=== PATIENT | male | born 1965 | race Caucasian/White ===

== ENCOUNTER 2017-08-29 22:48 | Inpatient (IN) ==
[2017-08-30] MEDS ORDERED: Ondansetron 4 MG/2 ML VIAL IVP PRN (00:56)
[2017-08-30] MEDS ORDERED: Naloxone 0.4 MG/ML INJ IVP PRN (00:56)
[2017-08-30] MEDS ORDERED: Acetaminophen 325 MG TABLET PO PRN (00:56)
[2017-08-30] MEDS ORDERED: *HR* Promethazine 25 MG/ML VIAL IVP PRN ×2 (00:56→21:42)
--- NOTE | 2017-08-30 01:39 | Internal Med History&Physical ---
Date of Encounter: 08/30/17 Time of Encounter: 01:00 Internal Medicine - H&P: HPI Chief complaint: Severe low back pain Admitted From: Emergency Dept Plans for Post Hospital Care: Home History of present illness: Mr. Hodges is a 52 year old male with known PMH of Chronic low back pain since 1999, had few steroid injections in the past went to [facility] 10 days ago with severe lower back pain and some trouble with ambulating too. He was given flexaril and PO steroids which helped with his pain, however since y/d he had very difficult to ambulate. He denied any urine or fecal incontinence. He denied any trauma. Denied any fall. He was transferred to our hospital for further care and possible surgery. Pt is alert, awake and O x 3. Denied any fever / chills. His back pain is tolerable with pain medication. Past Med Surg Social Fam HX - Past Medical History Medical history: hypertension Psychiatric history: anxiety, depression, PTSD - Past Surgical History Surgical History: other - Social History Smoking Status: Never smoker Smokeless Tobacco Status: No (quit 1.5 years ago) Alcohol use: occasionally Drug use: none Internal Medicine - H&P: Meds No Known Home Drugs 08/29/17 [History] 3 Allergy/AdvReac Type Severity Reaction Status Date / Time No Known Allergies Allergy Verified 08/20/17 20:12 All Systems PM: A 10-system review of systems was performed and is negative for pertinent findings except as documented above in the HPI. Review of systems: All the systems are reviewed everything is benign except the systems and symptoms I mentioned in the history of present illness - Constitutional Vitals: Temp Pulse Resp BP Pulse Ox 98.1 F 99 14 124/80 94 08/30/17 00:57 08/30/17 00:57 08/30/17 00:57 08/30/17 00:57 08/30/17 00:57 General appearance: Present: A&O X 3, answers questions appropriately - Head Head exam: Present: atraumatic, normal inspection - Neck Neck exam general surgery: Present: supple - Respiratory Respiratory exam: Present: decreased breath sounds. Absent: rales, respiratory distress, rhonchi, wheezes - Cardiovascular Cardiovascular exam: Present: RRR, +S1, +S2. Absent: tachycardia - GI/Abdominal GI/Abdominal exam: Present: normal bowel sounds, soft. Absent: rebound, rigid, tenderness - Extremities Exam Extremities exam: Absent: calf tenderness, pedal edema, tenderness - Back Exam Back exam: Present: vertebral tenderness (at lumbar region). Absent: CVA tenderness (L), CVA tenderness (R), paraspinal tenderness, rash noted - Neurological Exam Neurological exam: Present: alert, oriented X3, reflexes normal, no focal deficits, strengths equal and symetr throughout. Absent: pronater drift, facial droop, speech deficit - Psychiatric Psychiatric exam: Present: normal affect, normal mood - Skin Skin exam: Absent: rash - Assessment and plan (1) Intractable low back pain Current Visit: Yes Status: Acute Assessment and plan: Admit the pt into Med Surg Reviewed his CT of Spine report - showed moderate multi level degenerative changes through out lumbar spine He does have severe lower back pain Will start him on PO and IV analgesics PRN Cont symptomatic and supportive care Cont Flexaril PRN Will consult Ortho surgery Dr. Hummel in AM Keep NPO for now - If pt need to go to surgery today (2) Degenerative joint disease Current Visit: No Status: Acute Qualifiers: Qualified Code(s): M19.90 - Unspecified osteoarthritis, unspecified site (3) Lumbar radiculopathy Current Visit: No Status: Acute - Time Spent With Patient Total time spent is greater than 50% in coordination of care (as documented) at patient's floor/unit and/or counseling patient:
[2017-08-30] MEDS: *HR* HYDROcodone/Acet 5/325 mg TABLET PO PRN ×3 (01:55→18:03)
[2017-08-30] MEDS: *HR* Heparin 5,000 UNIT/ML VIAL SQ SCH ×2 (04:02→18:04)
[2017-08-30 05:34] LABS: Basophils % 0.5 %; Eosinophils # 0.1 K/mcL (0.0-0.6); Eosinophils % 1.5 %; Hemoglobin 16.6 g/dL (12.9-16.9); Immature Granulocytes % 0.8 % (0-4); Lymphocytes # 3.3 K/mcL (0.6-4.6); Lymphocytes % 38.1 %; Mean Corpuscular HGB Conc 35.3 g/dL (31.6-35.5); Mean Corpuscular Hemoglobin 31.4 pg (28.0-33.3); Mean Corpuscular Volume 88.8 fL (83.0-100.0); Mean Platelet Volume 11.4 fL (9.4-12.4); Monocytes # 0.6 K/mcL (0.0-1.3); Monocytes % 7.5 %; Neutrophils # 4.4 K/mcL (1.6-8.9); Platelet Count 146 K/mcL (140-400); Red Blood Count 5.29 M/mcL (4.19-5.50); Segmented Neutrophils % 51.6 %
[2017-08-30 05:52] LABS: BUN/Creatinine Ratio 25 (6-26); Blood Urea Nitrogen 25 mg/dL (6-20); Carbon Dioxide 22 mEq/L (23-29); Chloride 102 mEq/L (98-107); Glucose 337 mg/dL (70-105); Osmolality,Calculated 292 (280-300); Potassium 4.1 mEq/L (3.5-5.1); Sodium 132 mEq/L (136-145); eGFR For African Americans > 60 (> 60); eGFR For Non-African Americans > 60 (> 60)
[2017-08-30] MEDS ORDERED: Dextrose Gel 15 GM/37.5 ML TUBE PO PRN ×2 (06:39)
[2017-08-30] MEDS ORDERED: D5% in Water 1,000 ML IVC PRN (06:39)
[2017-08-30] MEDS ORDERED: *HR* Dextrose 50 % in Water (Syg) 50 ML SYRINGE IVP PRN (06:39)
[2017-08-30 09:07] LABS: Estimated Average Glucose 209 mg/dl; Hemoglobin A1C 8.9 %
[2017-08-30] MEDS: *HR* FentaNYL (PF) 100 MCG/2 ML VIAL IVP PRN ×2 (09:58→15:06)
[2017-08-30] MEDS: Insulin LISPRO 300 UNITS/3 ML VIAL SQ SCH ×3 (09:58→18:03)
--- NOTE | 2017-08-30 14:14 | Event Note ---
Date of Encounter: 08/30/17 Time of Encounter: 11:30 Patient seen and examined and the bedside this morning. Discussed the assessment and plan with the patient as well as nurse. Patient is here with chronic low back pain which has acutely gotten worse over the last few days. He has had multiple steroid injections and physical therapies to his low back pain. From what he describes it looks like advanced degenerative joint disease which is now also associated with radiculopathy. We will continue pain control and and a spasmodics. Orthopedic consult is pending at this time. He also is pending MRI evaluation. Off note MRI machine is down between the hours of 10 AM and 2 PM and history may be delayed. Rest of the assessment and plan as per in H&P.
--- NOTE | 2017-08-30 17:06 | Spinal Consult Note ---
Date of Encounter: 08/30/17 Time of Encounter: 17:05 Assessment and Plan (1) Lumbar stenosis Current Visit: Yes Status: Chronic On physical exam he is sitting up in bed complaining of significant back and bilateral lower extremity pain right greater than left. He is also complaining of lower extremity weakness bilaterally. Afebrile vital signs stable. His hips move symmetrically. He has an equivocal straight leg raise on the right. He has significant weakness in the right quadriceps, right dorsiflexors and plantar flexors which is 3 on a motor scale. On the left his quadriceps and distal motor groups are 4 on a motor scale. His hips move symmetrically. He has no clonus. Pulses are intact in the lower extremities bilaterally. MRI of the lumbar spine dated 08/30/2017 reveals a very large extruded disc at L3-4 resulting in severe stenosis at this level. It is causing severe compression of the thecal sac. There are multilevel degenerative changes in the lumbar spine. Impression: 1) severe lumbar stenosis secondary to disc extrusion 2) lumbar radiculopathy 3) focal motor deficit 4) leg weakness 5) gait impairment Plan: Due to his concerning weakness and risk for further or permanent neurologic injury, as well as significant functional decline including inability to ambulate I find it reasonable to consider surgery in the form of a laminectomy/decompression L3-4. Risks benefits possible complications and alternatives were discussed and the patient would like to proceed. Qualifiers: Neurogenic claudication status: with neurogenic claudication Qualified Code (s): M48.062 - Spinal stenosis, lumbar region with neurogenic claudication (2) Focal motor deficit Current Visit: Yes Status: Acute (3) Bilateral leg weakness Current Visit: Yes Status: Acute (4) Impaired gait Current Visit: Yes Status: Acute History of Present Illness Chief complaint: "Can barely walk, legs weak" HPI: Mr. Hodges is a 52 year old male Who has long-standing history of low back pain for many years. However for the past month he has had worsening back pain which radiates into the bilateral lower extremities right greater than left. This precipitated an emergency room visit 10 days ago where he was treated conservatively including injections and medications. Over the past 7 days his pain and radicular symptoms have progressed such that he now has weakness in the lower extremities. He states he can barely walk and has paresthesias in the bilateral lower extremities. His inability to ambulate prompted a second emergency room evaluation and he was admitted here for definitive management. He denies any bowel bladder symptoms, states that his normal baseline is full community ambulator but now is unable to ambulate any distance secondary to weakness and pain. He denies any fevers or chills. Past Med Surg Social Fam HX - Past Medical History Medical history: hypertension Psychiatric history: anxiety, depression, PTSD - Past Surgical History Surgical History: other - Social History Smoking Status: Never smoker Smokeless Tobacco Status: No (quit 1.5 years ago) Alcohol use: occasionally Drug use: none - Family History Mother Living Status: Age at : 62 Hx Family Endocrine Disorder: Yes Medications and Allergies predniSONE [PredniSONE] 60 mg PO DAILY 08/30/17 [History] 3 Allergy/AdvReac Type Severity Reaction Status Date / Time No Known Allergies Allergy Verified 08/20/17 20:12 Results - Labs Result Diagrams: 08/30/17 04:57 08/30/17 04:57 Labs: Abnormal lab results Sodium 132 mEq/L (136-145) L 08/30/17 04:57 Carbon Dioxide 22 mEq/L (23-29) L 08/30/17 04:57 BUN 25 mg/dL (6-20) H 08/30/17 04:57 Glucose 337 mg/dL (70-105) H 08/30/17 04:57 POC Glucose 281 mg/dL (70-99) H 08/30/17 05:23 Hemoglobin A1c 8.9 % (-5.6) H 08/30/17 04:57 H & H 08/30/17 Range/Units 04:57 Hgb 16.6 D (12.9-16.9) g/dL Hct 47.0 (37.5-50.1) % All other labs normal. Consult Discharge Plan - Plan [facility] [Primary Care Provider[facility] -
--- NOTE | 2017-08-30 17:47 | Event Note ---
Date of Encounter: 08/30/17 Time of Encounter: 17:44 Pt MRI was found to have severe lumbar myelopathy with dsic herniation at L3-4. Ortho planned to have surgery tonight. He has past medical Hx of DM and HTN ( well-controlled right now). His revised cardiac risk index for preoperative risk is 1, which indicated he is at low risk for the surgery. From Hospitalist standpoint, he is cleared for surgery.
[2017-08-30 18:03] LABS: Basophils # 0.1 K/mcL (0.0-0.2); Basophils % 0.6 %; Eosinophils # 0.1 K/mcL (0.0-0.6); Eosinophils % 1.3 %; Hematocrit 50.5 % (37.5-50.1); Hemoglobin 17.7 g/dL (12.9-16.9); Immature Granulocytes % 0.8 % (0-4); Lymphocytes % 36.1 %; Mean Corpuscular Hemoglobin 31.4 pg (28.0-33.3); Mean Corpuscular Volume 89.5 fL (83.0-100.0); Mean Platelet Volume 11.5 fL (9.4-12.4); Monocytes # 0.7 K/mcL (0.0-1.3); Neutrophils # 4.4 K/mcL (1.6-8.9); Platelet Count 133 K/mcL (140-400); Red Blood Count 5.64 M/mcL (4.19-5.50); Segmented Neutrophils % 53.2 %
[2017-08-30 18:08] LABS: INR 1.1; Prothrombin Time 11.7 Seconds (9.4-12.1)
[2017-08-30 18:23] LABS: BUN/Creatinine Ratio 24 (6-26); Blood Urea Nitrogen 24 mg/dL (6-20); Calcium 9.2 mg/dL (8.6-10.3); Carbon Dioxide 24 mEq/L (23-29); Chloride 103 mEq/L (98-107); Glucose 278 mg/dL (70-105); Osmolality,Calculated 292 (280-300); Potassium 4.6 mEq/L (3.5-5.1); Sodium 134 mEq/L (136-145); eGFR For African Americans > 60 (> 60); eGFR For Non-African Americans > 60 (> 60)
[2017-08-30 18:27] LABS: Reactive Lymphocytes Present (Not Present)
--- NOTE | 2017-08-30 18:50 | Anesthesia Evaluation PreOp ---
Date of Encounter: 08/30/17 Time of Encounter: 18:45 - Past History Planned Operation: Laminectomy L4-5 Cardiac History: HTN (no meds) Pulmonary History: Former smoker (quit 1.5 year ago) ARTIFACTS CONSERVATOR History: Other (focal LE motor deficit) Other Medical History: Other (Anxiety Depression) Anesthesia History: No Prior Anesthetic Complications, Past Anesthesia (ORIF Left Humerus) Alcohol Use: occasionally Drug use: none Medications and Allergies predniSONE [PredniSONE] 60 mg PO DAILY 08/30/17 [History] 3 Allergy/AdvReac Type Severity Reaction Status Date / Time No Known Allergies Allergy Verified 08/20/17 20:12 - Meds/Allergy Pre-op Review Medications Reviewed: Yes Allergies Reviewed: Yes Beta Blockers on Current Med List: No Anesthesia Results - Labs 08/30/17 17:45 08/30/17 17:45 Laboratory Tests 08/30/17 08/30/17 17:45 17:45 Hgb 17.7 H Hct 50.5 H Plt Count 133 L Sodium 134 L Potassium 4.6 BUN 24 H Creatinine 1.01 Anesthesia Exam O2 Sat Height 1.8 m Weight 113.217 kg Weight 113.217 kg O2 Sat by Pulse Oximetry 96 O2 Sat by Pulse Oximetry 94 O2 Sat by Pulse Oximetry 96 O2 Sat by Pulse Oximetry 96 O2 Sat by Pulse Oximetry 94 Vital Signs Temp Pulse Resp BP Pulse Ox 98.1 F 99 14 124/80 94 08/30/17 00:57 08/30/17 00:57 08/30/17 00:57 08/30/17 00:57 08/30/17 00:57 Height: 5'11 Weight: 249 lbs NPO (# of Hours): MN Pain Scale: 0 - HEENT Pupil (Motor): Pupils equal, EOMI Mallampati: III Teeth: Normal Oral Opening: Less than or equal to 3 - ARTIFACTS CONSERVATOR LOC: Oriented ARTIFACTS CONSERVATOR Motor: Normal RUE, Normal LUE, Normal Face, Deficit RLE (weak), Deficit LLE (weak) ARTIFACTS CONSERVATOR Sensory: Normal: RUE, LUE, Face, Deficit: RLE (paresthesia), LLE ( paresthesia) - Cardiac Rhythm: Regular Murmur: None JVD: No Carotid Bruit: No - Pulmonary Breath Sounds: bilateral Clear Respiratory Effort: Symmetrical Anesthesia Assess/Plan ASA Score: 2 Modified Roxanna Scale for Level of Consciousness: Cooperative, oriented, and tranquil Anesthetic Plan: General Monitoring Plan: Standard Monitors Recovery Plan: PACU (Discussed GA, risks and benefits, agrees to proceed)
[2017-08-30] MEDS ORDERED: Metoclopramide 10 MG/2 ML VIAL IVP ONE (18:52)
[2017-08-30] MEDS ORDERED: Famotidine 20 MG/2 ML VIAL IVP ONE (18:52)
[2017-08-30 19:54] LABS: Bilirubin,Urine Negative (Negative); Blood,Urine Negative (Negative); Clarity,Urine Clear (Clear); Color,Urine Yellow (Yellow); Glucose,Urine (UA) >=1000 mg/dL (Normal); Ketones,Urine Negative (Negative); Leukocyte Esterase,Urine Negative (Negative); Nitrite,Urine Negative (Negative); Protein,Urine Negative (Neg-Trace); Specific Gravity,Urine > 1.030 (1.010-1.025); Urobilinogen,Urine Normal (Normal)
[2017-08-30] MEDS ORDERED: ceFAZolin 1,000 MG in Water for inj. (sterile) 20 ML 10 ML IVP ONE (20:00)
[2017-08-30] MEDS ORDERED: *HR* Midazolam HCl 2 MG/2 ML VIAL ONE (20:56)
[2017-08-30] MEDS ORDERED: *HR* Propofol 200 MG/20 ML VIAL IVP ONE ×2 (20:56→21:34)
[2017-08-30] MEDS ORDERED: *HR* FentaNYL (PF) 100 MCG/2 ML VIAL ONE ×2 (20:56→23:06)
[2017-08-30] MEDS ORDERED: *HR* Rocuronium Bromide 50 MG/5 ML VIAL ONE (20:56)
[2017-08-30] MEDS ORDERED: Lidocaine -MPF 2% 2 ML VIAL ONE (20:56)
[2017-08-30] MEDS ORDERED: Insulin LISPRO 300 UNITS/3 ML VIAL SQ SCH (21:00)
[2017-08-30] MEDS ORDERED: Bacitracin 50,000 UNIT, Polymyxin B Sulfate 500,000 UNIT, Sodium Chloride IRRigation 1,... IR ONE (21:30)
[2017-08-30] MEDS ORDERED: *HR* OxyCODONE Immed Rel 5 MG TABLET PO PRN (21:42)
[2017-08-30] MEDS ORDERED: Acetaminophen IV 1,000 MG/100 ML INFUS..BTL ONE (21:45)
[2017-08-30] MEDS ORDERED: *HR* PHENYLEPHRINE 1,000 MCG/10 ML SYRINGE IVP ONE ×2 (21:58→22:21)
[2017-08-30] MEDS ORDERED: EPHEDrine 50 MG/ML VIAL ONE (22:22)
[2017-08-30] MEDS ORDERED: Dexamethasone 4 MG/ML VIAL ONE (22:37)
[2017-08-30] MEDS ORDERED: Ondansetron 4 MG/2 ML VIAL ONE (22:37)
[2017-08-30] MEDS ORDERED: Neostigmine Methylsulfate 3 MG/3 ML SYRINGE ONE (22:39)
--- NOTE | 2017-08-30 23:08 | Orthopedic Operative Note ---
Date of procedure: 08/30/17 Pre-op diagnosis: Lumbar stenosis, lumbar radiculopathy, focal motor deficit, gait impairment Post-op diagnosis: same Operation/Findings: Laminectomy L3-L4: The patient was brought to the operative theater where he underwent general endotracheal anesthesia. He was given antibiotics prior to the start of the procedure. Compression boots and stockings were used for deep vein thrombosis prophylaxis. The patient was placed prone on a Herman table. The back was prepped and draped in the usual sterile fashion. An incision was marked and centered over the L3-L4 interspaces in the midline. We used Bovie cautery to make an incision and then this incision was deepened through the lumbar fascia. Bovie cautery and Joyce elevators were used to reflect the paraspinal musculature to the lateral extent of the L3-L4 facet joints bilaterally. Concha clamps were placed over the spinous processes of L3 and L4 and an intraoperative lateral fluorograph was obtained. A discusssion was held between the radiologist and surgeon who both confirmed we were at the correct operative level. We then removed the supraspinous and interspinous ligaments between L3 and L4 and subsequently removed the ligamentum flavum from its origin on the distal undersurface of the L3 lamina. The ligamentum flavum was noted to be quite hypertrophied as well as the facets were hypertrophied. This required performing a laminectomy of L3 including undercutting of the facets to decompress the lateral recesses. We inspected the L3-4 disc space and there was a very large disc extrusion at this level causing severe stenosis. We medialized the thecal sac with a dural retractor and removed extruded L3-4 disc material and sent it for pathologic evaluation. After the decompression was complete we checked the foramen and the traversing nerve roots at L3-4 and they were found to be free and patent. We copiously irrigated the wound and then closed the wound in layers with 1 Vicryl for the fascia, 2-0 Vicryl for the subcutaneous tissue, and Dermabond was used for skin closure. Sterile dressings were placed over the wound, the patient was turned supine in a hospital bed, and was extubated in the operative theater. All sponge needles and instrument counts were correct at the end of the procedure. The patient tolerated the procedure well without complications. Anesthesia: GETA Surgeon: Chad E Hummel Jr Was there an orthotic assistant present: No Estimated blood loss (cc): 10 Specimen: L3-L4 disc material Condition: stable Disposition: PACU
--- NOTE | 2017-08-31 00:06 | Anesthesia Evaluation Post Op ---
Date of Encounter: 08/31/17 Time of Encounter: 00:06 - Vital Signs Vital Signs: Last Vital Signs Temp 98.2 F 08/30/17 23:55 Pulse 93 08/30/17 23:55 Resp 16 08/30/17 23:55 BP 122/85 08/30/17 23:55 Pulse Ox 97 08/30/17 23:55 - Lungs Lungs: Clear Ascult./Percussion - Airway Airway: Non-obstructed - Cardiovascular Regular Rate - Mental Status Mental Status: Alert & Oriented, Answers Appropriately - Pain Pain Scale: 4 - Nausea Vomiting Nausea Vomiting: Not Present - Hydration Hydration: Ice chips - Discharge PostOp Status: Transfer Patient to floor
[2017-08-31] MEDS ORDERED: *HR* Promethazine 25 MG/ML VIAL IVP PRN (00:25)
[2017-08-31] MEDS ORDERED: *HR* HYDROcodone/Acet 5/325 mg TABLET PO PRN (00:25)
[2017-08-31] MEDS ORDERED: Ondansetron 4 MG/2 ML VIAL IVP PRN ×2 (00:25)
[2017-08-31] MEDS ORDERED: CeFAZolin Pre 2,000 MG/100 ML 2,000 MG/100 ML BAG IVPB SCH (00:25)
[2017-08-31] MEDS ORDERED: Acetaminophen 325 MG TABLET PO PRN (00:25)
[2017-08-31] MEDS ORDERED: Naloxone 0.4 MG/ML INJ IVP PRN (00:25)
[2017-08-31] MEDS ORDERED: Ringers Solution, Lactated 1,000 ML IVC SCH (00:25)
[2017-08-31] MEDS: *HR* OxyCODONE Immed Rel 5 MG TABLET PO PRN ×4 (00:58→21:50)
[2017-08-31] MEDS: ceFAZolin 2,000 MG in D5% in Water 100 ML IVPB SCH ×2 (01:54→09:48)
--- NOTE | 2017-08-31 16:30 | Internal Med Progress Note ---
Date of Encounter: 08/31/17 Time of Encounter: 16:28 - Assessment and plan (1) Lumbar radiculopathy Current Visit: Yes Status: Acute (2) Lumbar spondylosis with myelopathy Current Visit: Yes Status: Acute Assessment and plan: - MRI revealed severe L3-4 lumbar radiculopathy and myelopathy due disc herniation. - underwent disc removal and spinal decompression on 08/30. - symptoms improved after surgery but not completely resolved yet. - continue rehab, will dc home wiith outpt rehab in am. (3) Diabetes mellitus Current Visit: No Status: Chronic Assessment and plan: - continue insulin SS. Qualifiers: Diabetes mellitus type: type 2 Diabetes mellitus continuous churn buttermaker insulin use: without senior care use Diabetes mellitus complication status: without complication Qualified Code(s): E11.9 - Type 2 diabetes mellitus without complications - Time Spent With Patient Total time spent is greater than 50% in coordination of care (as documented) at patient's floor/unit and/or counseling patient: - Subjective Interval history: improved leg weakness. denies incontinence. - Constitutional Vitals: Temp Pulse Resp BP Pulse Ox 98.8 F 110 18 140/87 94 08/31/17 15:23 08/31/17 15:23 08/31/17 15:23 08/31/17 15:23 08/31/17 15:23 General appearance: Present: A&O X 3, answers questions appropriately Exam: PHYSICAL EXAMINATION: GENERAL APPEARANCE: The patient is alert, oriented and in no acute distress. HEENT: Head is normocephalic. The sinuses are nontender. Pupils are equal and reactive. The nares are patent. Oropharynx clear without lesions. NECK: Supple without lymphadenopathy. HEART: Regular rate and rhythm. LUNGS: No crackles or wheezes are heard. ABDOMEN: Soft, nontender, nondistended with good bowel sounds heard. Inguinal area is normal. EXTREMITIES: Without cyanosis, clubbing or edema. NEUROLOGICAL: grossly weakness of BLE SKIN: Warm and dry without any rash. Internal Medicine: Result - Labs CBC & Chem 7: 08/30/17 17:45 08/30/17 17:45 Labs: Short CBC 08/30/17 Range/Units 17:45 WBC 8.3 (4.3-11.1) K/mcL Hgb 17.7 H (12.9-16.9) g/dL Hct 50.5 H (37.5-50.1) % Plt Count 133 L (140-400) K/mcL Neutrophils # 4.4 (1.6-8.9) K/mcL BMP 08/30/17 17:45 Sodium 134 L Potassium 4.6 Chloride 103 Carbon Dioxide 24 BUN 24 H Creatinine 1.01 Glucose 278 H Calcium 9.2 Urine 08/30/17 Range/Units 19:43 Urine Color Yellow (Yellow) Urine Clarity Clear (Clear) Urine pH 6.0 (5.0-8.0) pH Units Ur Specific [place] > 1.030 H (1.010-1.025) Urine Protein Negative (Neg-Trace) mg/dL Urine Glucose (UA) >=1000 H (Normal) mg/dL - ABG Interpretation ABG results: PT/INR, D-dimer PT 11.7 Seconds (9.4-12.1) 08/30/17 17:45 - Impressions Impressions Lumbar Spine MRI 08/30/17 01:50 IMPRESSION: Large left paracentral disc extrusion at L3-L4 resulting in severe central canal stenosis and severe compression of the thecal sac which is displaced to the right Small left paracentral disc protrusion at T12-L1 Mild bilateral foraminal stenosis at L4-5 and L5-S1 D/ / 08/30/2017 13:27:01 Jose Hoffman MD / [email or web address] Interpreting Provider: Jose Hoffman MD Fluoroscopy 08/30/17 22:06 IMPRESSION: Intraprocedural fluoroscopic spot images as above. See separate procedure report for more information. D/ / Patric Jacinto MD / Patric Jacinto MD Interpreting Provider: Patric Jacinto MD - VTE Documentation of Mechanical Device: Intermittent pneumatic compression device Consult Discharge Plan - Plan Referrals: Tiffani Mann, PAC [Physician Radioactivity Technician] - 09/11/17 2:45 pm
[2017-09-01 01:51] LABS: Basophils % 0.2 %; Eosinophils % 0.3 %; Hematocrit 45.7 % (37.5-50.1); Hemoglobin 16.2 g/dL (12.9-16.9); Immature Granulocytes % 0.6 % (0-4); Immature Platelets 7.7 % (1.1-6.1); Lymphocytes # 3.4 K/mcL (0.6-4.6); Lymphocytes % 24.7 %; Mean Corpuscular HGB Conc 35.4 g/dL (31.6-35.5); Mean Corpuscular Hemoglobin 32.1 pg (28.0-33.3); Mean Corpuscular Volume 90.5 fL (83.0-100.0); Mean Platelet Volume 11.2 fL (9.4-12.4); Monocytes % 7.2 %; Neutrophils # 9.2 K/mcL (1.6-8.9); Platelet Count 156 K/mcL (140-400); Red Blood Count 5.05 M/mcL (4.19-5.50); Red Cell Distribution Width 11.9 % (11.5-14.5)
[2017-09-01 02:26] LABS: BUN/Creatinine Ratio 25 (6-26); Blood Urea Nitrogen 24 mg/dL (6-20); Calcium 9.2 mg/dL (8.6-10.3); Carbon Dioxide 24 mEq/L (23-29); Chloride 99 mEq/L (98-107); Glucose 255 mg/dL (70-105); Osmolality,Calculated 289 (280-300); Sodium 133 mEq/L (136-145); eGFR For African Americans > 60 (> 60); eGFR For Non-African Americans > 60 (> 60)
[2017-09-01] MEDS: *HR* OxyCODONE Immed Rel 5 MG TABLET PO PRN ×3 (07:48→20:34)
--- NOTE | 2017-09-01 13:16 | Electrocardiograph Report ---
[address] [address] Test Date: 2017-08-30 Pat Name: Connor Hodges Department: 115 Room: [facility] Gender: M Maintenance Scheduler: : 1965 Requested By: Chad Hummel Order Number: [id number] Reading MD: Patricia Copeland Measurements Intervals [place] Rate: 91 P: 39 WI: 153 QRS: 14 QRSD: 72 T: 44 QT: 333 QTc: 381 Interpretive Statements SINUS RHYTHM Electronically Signed On 09-01-2017 13:15:27 EDT by Patricia Copeland
--- NOTE | 2017-09-01 16:52 | Internal Med Progress Note ---
Date of Encounter: 09/01/17 Time of Encounter: 16:52 - Assessment and plan (1) Lumbar spondylosis with myelopathy Current Visit: Yes Status: Acute Assessment and plan: presented with lower back, bilateral lower extremity pain and inability to ambulate. L-spine MRI revealed severe L3-4 lumbar radiculopathy and myelopathy due disc herniation. S/p disc removal and spinal decompression on 08/30/[address] Hummel. Symptoms improved after surgery but not completely resolved. Plan was to discharge on 09/01/17 the son's house however patient reported son would not be home and he was not able to be left alone. He is also considering inpatient rehabilitation. Continue PT, mobilization/ambulation encouraged. Pain control with PRN Hydrocodone and OxyIR. (2) Diabetes mellitus Current Visit: No Status: Chronic Assessment and plan: new dx. Hgb A1c 8.9%. Cont SSI for now. Her blood sugar and titrate PRN. Discussed with RN who will do diabetic teaching. Discharge home on metformin. Qualifiers: Diabetes mellitus type: type 2 Diabetes mellitus shelter insulin use: without moth exterminator use Diabetes mellitus complication status: without complication Qualified Code(s): E11.9 - Type 2 diabetes mellitus without complications (3) DVT prophylaxis Current Visit: Yes Status: Acute Assessment and plan: SCDs - Time Spent With Patient Total time spent is greater than 50% in coordination of care (as documented) at patient's floor/unit and/or counseling patient: - Subjective Interval history: Seen and examined at bedside; he should is new to me. Information obtained from chart review and patient report. Says he feels better overall still having some lower back pain and bilateral leg paresthesias. Right worse than left. Says he cannot go home today as he is going home with his son and there will be no one at his son's house to stay with him. He also reports that he is considering acute inpatient rehabilitation. He is requesting to stay overnight again and reassess tomorrow. Ambulating and working with therapy. - Constitutional Vitals: Temp Pulse Resp BP Pulse Ox 98.0 F 90 16 127/82 96 09/01/17 11:42 09/01/17 11:42 09/01/17 11:42 09/01/17 11:42 09/01/17 11:42 General appearance: Present: A&O X 3, answers questions appropriately - Head Head exam: Present: atraumatic, normocephalic - Eye Eye exam: Present: PERRL, conjuntiva pink, sclera anicteric Pupils: Present: PERRL - Neck Neck exam general surgery: Present: supple, trachea midline. Absent: lymphadenopathy - Respiratory Respiratory exam: Present: CTAB. Absent: accessory muscle use, rales, rhonchi, wheezes - Cardiovascular Cardiovascular exam: Present: RRR, +S1, +S2. Absent: diastolic murmur, gallop, rubs, systolic murmur - GI/Abdominal GI/Abdominal exam: Present: normal bowel sounds, soft, no peritoneal signs. Absent: distended, tenderness - Extremities Exam Extremities exam: Present: warm, radial pulses palpable and symmetrical. Absent : calf tenderness, cyanotic, pedal edema - Neurological Exam Neurological exam: Present: CN II-XII intact, oriented X3, no focal deficits. Absent: pronater drift, facial droop, speech deficit - Skin Skin exam: Present: dry, intact - Expanded Skin Exam Full body front and back image: 1 - Incision with dressing clean, dry, intact. Incision not assessed per patient request Internal Medicine: Result - Labs CBC & Chem 7: 09/01/17 00:58 09/01/17 00:58 Labs: Short CBC 09/01/17 Range/Units 00:58 WBC 13.7 H D (4.3-11.1) K/mcL Hgb 16.2 D (12.9-16.9) g/dL Hct 45.7 (37.5-50.1) % Plt Count 156 (140-400) K/mcL Neutrophils # 9.2 H (1.6-8.9) K/mcL BMP 09/01/17 00:58 Sodium 133 L Potassium 4.0 Chloride 99 Carbon Dioxide 24 BUN 24 H Creatinine 0.96 Glucose 255 H Calcium 9.2 - ABG Interpretation ABG results: PT/INR, D-dimer PT 11.7 Seconds (9.4-12.1) 08/30/17 17:45 - VTE Documentation of Mechanical Device: Intermittent pneumatic compression device Consult Discharge Plan - Plan Additional Instructions: Discharge Instructions: Lumbar Please call [facility] ([phone]), your Primary Care Physician, or report to the ER if you have any of the following symptoms: Fever greater that 101.5, increased pain/redness/drainage/odor for your incision site or any other concerning symptoms. ACTIVITY * May Shower * No Tub Baths * No lifting greater than 10 pounds * No Smoking * No Swimming * No off Ground Activities (Running, Climbing, Ladders, Horseback Riding) * No Driving * Wear Back Brace when up walking if lumbar fusion done MEDICATIONS: Upon discharge resume your home medications. Take all the medications as prescribed. Take a stool softener if taking narcotic pain medications. Stool softeners are only effective if you drink enough fluids. Drink 6-8 glass of water or fluids a day, unless this is not allowed for another health problem. Despite using stool softeners, if you haven't had a bowel movement in 3 days, please switch to a gentle laxative. Gentle laxatives are sold over the counter. You should have a bowel movement within 24 hours, if not call the office. You will be discharged from the hospital with a prescription for pain medication. You are encouraged to decrease the use of narcotic pain medication as tolerated. Should you require a refill, please call the office. It is best to call 48-72 hours in advance of needing a prescription refill so you don't run out of medication. WOUND CARE: Remove Dressing Tomorrow. Leave incision open to air. Pat dry when you get out of the shower. FOLLOW-UP: Please follow up with your surgeon in the orthopedic clinic in 2 weeks from the day of surgery. References: [place] ([email or web address]) Referrals: Tiffani Mann PAC [Physician Process Server] - 09/11/17 2:45 pm
[2017-09-02 06:33] LABS: Mean Corpuscular Hemoglobin 31.5 pg (28.0-33.3); Mean Platelet Volume 11.1 fL (9.4-12.4); Red Blood Count 4.16 M/mcL (4.19-5.50)
[2017-09-02 06:34] LABS: Hematocrit 37.5 % (37.5-50.1); Hemoglobin 13.1 g/dL (12.9-16.9); Immature Platelets 9.5 % (1.1-6.1); Mean Corpuscular HGB Conc 34.9 g/dL (31.6-35.5); Mean Corpuscular Volume 90.1 fL (83.0-100.0); Red Cell Distribution Width 11.7 % (11.5-14.5)
[2017-09-02] MEDS: *HR* OxyCODONE Immed Rel 5 MG TABLET PO PRN ×3 (07:23→20:10)
[2017-09-02] MEDS ORDERED: D5% in Water 1,000 ML IVC PRN (08:17)
[2017-09-02] MEDS ORDERED: *HR* Dextrose 50 % in Water (Syg) 50 ML SYRINGE IVP PRN (08:17)
[2017-09-02] MEDS ORDERED: Dextrose Gel 15 GM/37.5 ML TUBE PO PRN ×2 (08:17)
--- NOTE | 2017-09-02 08:23 | Internal Med Progress Note ---
Date of Encounter: 09/02/17 Time of Encounter: 08:20 - Assessment and plan (1) Lumbar spondylosis with myelopathy Current Visit: Yes Status: Acute Assessment and plan: presented with lower back, bilateral lower extremity pain and inability to ambulate. L-spine MRI revealed severe L3-4 lumbar radiculopathy and myelopathy due disc herniation. S/p disc removal and spinal decompression on 08/30/[address] Hummel. Symptoms improved after surgery but not completely resolved. Plan was to discharge on 09/01/17 to son's house however patient now requesting referral to acute inpatient rehab. Social work consulted. Mobilization/ ambulation encouraged. Pain control with PRN Hydrocodone and OxyIR. (2) Diabetes mellitus Current Visit: No Status: Chronic Assessment and plan: new dx. Hgb A1c 8.9%. Cont SSI for now. Monitor blood sugar and titrate PRN. Discussed with RN who will do diabetic teaching. Discharge home on metformin. Qualifiers: Diabetes mellitus type: type 2 Diabetes mellitus mcfp insulin use: without mcfp use Diabetes mellitus complication status: without complication Qualified Code(s): E11.9 - Type 2 diabetes mellitus without complications (3) DVT prophylaxis Current Visit: Yes Status: Acute Assessment and plan: SCDs - Time Spent With Patient Total time spent is greater than 50% in coordination of care (as documented) at patient's floor/unit and/or counseling patient: - Subjective Interval history: Seen and examined at bedside. He is c/o bilateral hip pain which she thinks is because of Daniel in the hospital bed. Still has lower extremity weakness; right greater than left however overall improved. Says he does not feel comfortable/ safe going to his son's house because he will be alone for most the day and still requires help getting into the bed. He also says he would have to sleep on a couch and he thinks that would make his back even worse. He would like to pursue inpatient rehabilitation at [facility]. - Constitutional Vitals: Temp Pulse Resp BP Pulse Ox 98.1 F 86 16 131/71 96 09/02/17 06:48 09/02/17 06:48 09/02/17 06:48 09/02/17 06:48 09/02/17 06:48 General appearance: Present: A&O X 3, answers questions appropriately - Head Head exam: Present: atraumatic, normocephalic - Eye Eye exam: Present: PERRL, conjuntiva pink, sclera anicteric Pupils: Present: PERRL - Neck Neck exam general surgery: Present: supple, trachea midline. Absent: lymphadenopathy - Respiratory Respiratory exam: Present: CTAB. Absent: accessory muscle use, rales, rhonchi, wheezes - Cardiovascular Cardiovascular exam: Present: RRR, +S1, +S2. Absent: diastolic murmur, gallop, rubs, systolic murmur - GI/Abdominal GI/Abdominal exam: Present: normal bowel sounds, soft, no peritoneal signs. Absent: distended, tenderness - Extremities Exam Extremities exam: Present: pedal edema (Bilateral trace nonpitting edema), warm , radial pulses palpable and symmetrical. Absent: calf tenderness, cyanotic - Neurological Exam Neurological exam: Present: CN II-XII intact, oriented X3, no focal deficits. Absent: strengths equal and symetr throughout (Right lower extremity weakness), pronater drift, facial droop, speech deficit - Skin Skin exam: Present: dry, intact - Expanded Skin Exam Full body front and back image: 1 - Incision with dressing intact. No shadowing or drainage noted. Internal Medicine: Result - Labs CBC & Chem 7: 09/02/17 05:36 09/01/17 00:58 Labs: Short CBC 09/02/17 Range/Units 05:36 WBC 6.4 D (4.3-11.1) K/mcL Hgb 13.1 D (12.9-16.9) g/dL Hct 37.5 (37.5-50.1) % Plt Count 95 L (140-400) K/mcL - ABG Interpretation ABG results: PT/INR, D-dimer PT 11.7 Seconds (9.4-12.1) 08/30/17 17:45 - VTE Documentation of Mechanical Device: Intermittent pneumatic compression device Consult Discharge Plan - Plan Additional Instructions: Discharge Instructions: Lumbar Please call [facility] ([phone]), your Primary Care Physician, or report to the ER if you have any of the following symptoms: Fever greater that 101.5, increased pain/redness/drainage/odor for your incision site or any other concerning symptoms. ACTIVITY * May Shower * No Tub Baths * No lifting greater than 10 pounds * No Smoking * No Swimming * No off Ground Activities (Running, Climbing, Ladders, Horseback Riding) * No Driving * Wear Back Brace when up walking if lumbar fusion done MEDICATIONS: Upon discharge resume your home medications. Take all the medications as prescribed. Take a stool softener if taking narcotic pain medications. Stool softeners are only effective if you drink enough fluids. Drink 6-8 glass of water or fluids a day, unless this is not allowed for another health problem. Despite using stool softeners, if you haven't had a bowel movement in 3 days, please switch to a gentle laxative. Gentle laxatives are sold over the counter. You should have a bowel movement within 24 hours, if not call the office. You will be discharged from the hospital with a prescription for pain medication. You are encouraged to decrease the use of narcotic pain medication as tolerated. Should you require a refill, please call the office. It is best to call 48-72 hours in advance of needing a prescription refill so you don't run out of medication. WOUND CARE: Remove Dressing Tomorrow. Leave incision open to air. Pat dry when you get out of the shower. FOLLOW-UP: Please follow up with your surgeon in the orthopedic clinic in 2 weeks from the day of surgery. References: [place] [employer] ([email or web address]) Referrals: Tiffani Mann PAC [Physician Seat Maker] - 09/11/17 2:45 pm
[2017-09-02] MEDS: Insulin LISPRO 300 UNITS/3 ML VIAL SQ SCH ×2 (12:06→16:14)
[2017-09-02] MEDS ORDERED: Insulin LISPRO 300 UNITS/3 ML VIAL SQ SCH (21:00)
[2017-09-03] MEDS: *HR* OxyCODONE Immed Rel 5 MG TABLET PO PRN ×2 (03:20→08:11)
[2017-09-03] MEDS: Insulin LISPRO 300 UNITS/3 ML VIAL SQ SCH (08:11)
[2017-09-03 09:18] LABS: Hematocrit 43.5 % (37.5-50.1); Mean Corpuscular HGB Conc 34.7 g/dL (31.6-35.5); Mean Corpuscular Hemoglobin 31.1 pg (28.0-33.3); Mean Corpuscular Volume 89.7 fL (83.0-100.0); Mean Platelet Volume 11.2 fL (9.4-12.4); Platelet Count 133 K/mcL (140-400); Red Blood Count 4.85 M/mcL (4.19-5.50); Red Cell Distribution Width 11.9 % (11.5-14.5)
[2017-09-03 09:24] LABS: Hemoglobin 15.1 g/dL (12.9-16.9)
--- NOTE | 2017-09-03 09:51 | Discharge Summary ---
Orders not resulted at time of discharge: Pending orders 08/30/17 22:06 XR lumbar spine 1V [XR] Routine 08/30/17 22:56 Surgical Pathology [PTH] Routine Date of Encounter: 09/03/17 Time of Encounter: 09:48 - Discharge Diagnosis (1) Lumbar spondylosis with myelopathy Priority: Primary Status: Acute Comments: presented with lower back, bilateral lower extremity pain and inability to ambulate. L-spine MRI revealed severe L3-4 lumbar radiculopathy and myelopathy due disc herniation. S/p disc removal and spinal decompression on 08/30/[address] Hummel. Symptoms improved but not completely resolved. Discharge to acute inpatient rehab. PRN OxyIR for pain. Follow-up with Dr. Hummel outpatient. (2) Diabetes mellitus Priority: Primary Status: Acute Comments: new dx. Hgb A1c 8.9%. Blood sugars remain elevated on low dose SSI, increase to medium scale. Received diabetic teaching during hospitalization. Recommend metformin when discharged from acute inpatient rehabilitation. Qualifiers: Diabetes mellitus type: type 2 Diabetes mellitus mcfp insulin use: without mcfp use Diabetes mellitus complication status: without complication Qualified Code(s): E11.9 - Type 2 diabetes mellitus without complications Hospital course: See assessment and plan for hospital course Discharge discussed with: patient (Ambulating in the billy with PT. Still having some lower back pain and lower extreme knee pain but improved from yesterday. He is requesting to go to acute inpatient rehabilitation if able to. Discussed case with social media designer to his assisting with discharge to [facility] acute inpatient rehabilitation.) - Time Spent with Patient Total time spent providing and/or coordinating discharge services: - Discharge Medications Prescriptions: OxyCODONE Immed Rel [Roxicodone 5 MG] 5 mg PO Q4HR PRN 7 Days #21 tablet PRN Reason: Mild To Moderate Pain Home Medications: Insulin LISPRO [HumaLOG] 0 units SQ HS vial 09/03/17 [Rx] Insulin LISPRO [HumaLOG] 0 units SQ TIDAC vial 09/03/17 [Rx] OxyCODONE Immed Rel [Roxicodone 5 MG] 5 mg PO Q4HR PRN 7 Days #21 tablet [Rx] Allergies/Adverse Reactions: 3 Allergy/AdvReac Type Severity Reaction Status Date / Time No Known Allergies Allergy Verified 08/20/17 20:12 Date of admission: 08/30/17 21:00 [facility] care physician[facility] Consults: 08/30/17 00:58 Consult to Occupational Therapy [CONS] Routine Comment: Evaluate, develop and implement POC Reason for Consult: Severe back pain Does patient have active BEDREST order?: No Is patient medically & hemodynamically stable?: Yes Patient assessed for mobility or mobilized this visit?: Yes Consult to Physical Therapy [CONS] Routine Comment: Evaluate, develop and implement POC Reason for Consult: Severe back pain Does patient have active BEDREST order?: No Is patient medically & hemodynamically stable?: Yes Patient assessed for mobility or mobilized this visit?: Yes 08/31/17 00:25 Consult to Nurse Navigator [CONS] Routine Comment: spine navigator Consult to Physical Therapy [CONS] Routine Comment: Evaluate, develop and implement POC Reason for Consult: Postoperative rehabilitation Does patient have active BEDREST order?: No Is patient medically & hemodynamically stable?: Yes Patient assessed for mobility or mobilized this visit?: No 09/01/17 17:31 Consult to Commercial Drone Pilot [CONS] Routine Reason for SW Consult: patient wants rehab at [facility] Discharging clinician: Patria Christianson Anticipated date of discharge: 09/03/17 - Constitutional Vitals: Temp Pulse Resp BP Pulse Ox 98.4 F 98 16 154/83 95 09/03/17 06:36 09/03/17 06:36 09/03/17 06:36 09/03/17 06:36 09/03/17 08:21 General appearance: Present: A&O X 3, no acute distress, answers questions appropriately - Head Head exam: Present: atraumatic, normocephalic - Eye Eye exam: Present: PERRL, conjuntiva pink, sclera anicteric Pupils: Present: PERRL - Neck Neck exam general surgery: Present: supple, trachea midline. Absent: lymphadenopathy - Respiratory Respiratory exam: Present: CTAB. Absent: accessory muscle use, rales, rhonchi, wheezes - Cardiovascular Cardiovascular exam: Present: RRR, +S1, +S2. Absent: diastolic murmur, gallop, rubs, systolic murmur - GI/Abdominal GI/Abdominal exam: Present: normal bowel sounds, soft, no peritoneal signs. Absent: distended, tenderness - Extremities Exam Extremities exam: Present: pedal edema, warm, radial pulses palpable and symmetrical. Absent: calf tenderness, cyanotic - Neurological Exam Neurological exam: Present: CN II-XII intact, oriented X3, no focal deficits. Absent: strengths equal and symetr throughout (Bilateral lower extreme weakness , right greater than left.), pronater drift, facial droop, speech deficit - Skin Skin exam: Present: dry, intact - Expanded Skin Exam Full body front and back image: 1 - Dressing clean, dry, intact. - Patient Status Disposition: Transfer Inpatient Rehab Fac Functional capacity at discharge: uses cane/walker Overall status at discharge: patient is progressing back to baseline - Discharge Instructions Instructions: Diabetes Mellitus Type 2 in Adults (DC), Lumbar Spinal Stenosis ( DC) Follow Up With: Tiffani Mann PAC [Physician Innersole Maker] - 09/11/17 2:45 pm Additional Instructions: Discharge Instructions: Lumbar Please call [facility] ([phone]), your Primary Care Physician, or report to the ER if you have any of the following symptoms: Fever greater that 101.5, increased pain/redness/drainage/odor for your incision site or any other concerning symptoms. ACTIVITY * May Shower * No Tub Baths * No lifting greater than 10 pounds * No Smoking * No Swimming * No off Ground Activities (Running, Climbing, Ladders, Horseback Riding) * No Driving * Wear Back Brace when up walking if lumbar fusion done MEDICATIONS: Upon discharge resume your home medications. Take all the medications as prescribed. Take a stool softener if taking narcotic pain medications. Stool softeners are only effective if you drink enough fluids. Drink 6-8 glass of water or fluids a day, unless this is not allowed for another health problem. Despite using stool softeners, if you haven't had a bowel movement in 3 days, please switch to a gentle laxative. Gentle laxatives are sold over the counter. You should have a bowel movement within 24 hours, if not call the office. You will be discharged from the hospital with a prescription for pain medication. You are encouraged to decrease the use of narcotic pain medication as tolerated. Should you require a refill, please call the office. It is best to call 48-72 hours in advance of needing a prescription refill so you don't run out of medication. WOUND CARE: Remove Dressing Tomorrow. Leave incision open to air. Pat dry when you get out of the shower. FOLLOW-UP: Please follow up with your surgeon in the orthopedic clinic in 2 weeks from the day of surgery. References: [place] ([email or web address]) - Diet and Activity Activity: as per physical therapy Diet: diabetic diet - VTE Documentation of Mechanical Device: Intermittent pneumatic compression device
--- NOTE | 2017-09-03 11:04 | Physician Discharge Referral ---
ExtendedCare Referral Info Transfer To: [facility] inpatient rehabilitation Provider in Charge: Patria Christianson CNP Provider in Charge after Transfer: PCP Institutional Level of Care: Skilled - Diagnosis (1) Lumbar spondylosis with myelopathy Status: Acute (2) Diabetes mellitus Status: Acute Prognosis: Good Aware of Diagnosis: Patient Aware of Prognosis: Patient - Transfer Medications Prescriptions: OxyCODONE Immed Rel [Roxicodone 5 MG] 5 mg PO Q4HR PRN 7 Days #21 tablet PRN Reason: Mild To Moderate Pain Home Medications: Insulin LISPRO [HumaLOG] 0 units SQ HS vial 09/03/17 [Rx] Insulin LISPRO [HumaLOG] 0 units SQ TIDAC vial 09/03/17 [Rx] OxyCODONE Immed Rel [Roxicodone 5 MG] 5 mg PO Q4HR PRN 7 Days #21 tablet [Rx] Allergies/Adverse Reactions: 3 Allergy/AdvReac Type Severity Reaction Status Date / Time No Known Allergies Allergy Verified 08/20/17 20:12 - Respiratory Orders None Smoking Cessation: Smoking cessation has been advised. For more information, call the [place] Tobacco Quit Line at 6-205-XZNP-NOW. - Advance Directives Code Status: Full Code - Mobility Orders Ambulate - Rehabiliation Orders Rehab Potential: Good Rehab Orders: Evaluation for Physical Therapy, Evaluation for Occupational Therapy - Diet Orders No Concentrated Sweets CERTIFICATION: I certify that the transfer of the above named patient to an Extended Care Facility is necessary for the continuing treatment of the diagnosis listed. The above information is true and accurate reflection of patient's current condition. Confidential - Redisclosure prohibited without a patient's written consent.
[2017-09-03 11:24] VITALS: BP 158/76
== END 2017-09-03 12:48 | DRG 519 ==
LOC: 3ANU → SUATTDRO 08-30 00:56 → 3NENU 08-30 21:32
PROVIDERS: ADMIT Internal Medicine; ATTEND Internal Medicine